=== PATIENT | male | born 1955 | race Caucasian/White ===

== ENCOUNTER 2021-11-12 11:45 | Emergency (ER) | payer MEDICARE, OTHER ==
[2021-11-12] MEDS ORDERED: Bupivacaine 0.5% 10 ML SDV INJECT ONE (14:21)
== END 2021-11-12 15:42 | disposition home or self-care (01) ==
LOC: JD.ED 11:45
DX: S63.287A Dislocation of proximal interphalangeal joint of left little finger, initial encounter (principal); W18.30XA Fall on same level, unspecified, initial encounter
CPT/HCPCS: 26770; 73140; 99283; J3490; 26700; 99282